=== PATIENT | male | born 1985 | race Caucasian/White ===

== ENCOUNTER 2021-06-03 09:49 | Emergency (ER) | payer BC, OTHER ==
[~2021-06-03] VITALS: Ht 165.1 cm; Wt 66.0 kg
[2021-06-03] MEDS ORDERED: MECLIZINE CHEWABLE 25 MG TAB PO ONE (11:00)
[2021-06-03] MEDS ORDERED: MECLIZINE CHEWABLE 25 MG TAB ONE (11:26)
[2021-06-03 11:31] LABS: ALBUMIN 4.3 g/dL (3.4-5.0); ANION GAP 7 mmol/L (5-15); BASOPHILS % (AUTO) 0 % (0-1); CALCIUM 8.9 mg/dL (8.5-10.1); CHLORIDE 109 mmol/L (98-107); CREATININE 0.71 mg/dL (0.7-1.3); EOSINOPHILS % (AUTO) 1 % (1-7); LYMPHOCYTES % (AUTO) 14 % (22-44); MEAN CORPUSCULAR HEMOGLOBIN 32.1 pg (27.5-34.5); MEAN CORPUSCULAR HGB CONC 34.4 g/dL (33.2-36.2); MEAN PLATELET VOLUME 8.4 fL (7.4-10.4); MONOCYTES % (AUTO) 4 % (2-9); NEUTROPHILS % (AUTO) 81 % (42-75); PLATELET COUNT 238 x10^3/uL (130-400); RED BLOOD COUNT 4.95 x10^6/uL (4.38-5.82); RED CELL DISTRIBUTION WIDTH 13.6 % (9.4-14.8)
--- NOTE | 2021-06-03 11:43 | NUR ---
PT MEDICATED PER PROVIDER ORDERS. PT RESTING IN NAD. PT DENIES NEEDS AT THIS TIME.
--- NOTE | 2021-06-03 13:00 | NUR ---
PT UPDATED ON MD ORDERING MRI. MRI SCREENIG FORM COMPLETED AND FAXED TO [id number] WITH CONFIRMATION PRINT OUT OF IT BEING FAXED.
--- NOTE | 2021-06-03 14:00 | NUR ---
PT IN MRI.
[2021-06-03 14:56] VITALS: BP 117/71
== END 2021-06-03 15:00 | disposition home or self-care (01) ==
LOC: ED 11:01
DX: R42 Dizziness and giddiness (principal); R11.0 Nausea
CPT/HCPCS: 36415; 70450; 70551; 80048; 82040; 85025; 93005; 99285